=== PATIENT | male | born 1970 | race Two or more races ===

== ENCOUNTER 2019-12-22 06:20 | Inpatient (IN) | payer OTHER ==
[~2019-12-22] VITALS: Ht 172.7 cm; Wt 92.0 kg
[2019-12-22 08:14] LABS: Basophils # (auto) 0 10 ^3/uL (0-0.2); Basophils % (auto) 0.7 % (0.0-2.0); Eosinophils # (auto) 0.1 10 ^3/uL (0-0.8); Eosinophils % (auto) 2.2 % (0.0-7.0); Hematocrit 47.7 % (41.0-53.0); Hemoglobin 16.4 g/dL (13.5-17.5); Lymphocytes # (auto) 2.4 10 ^3/uL (0.4-5.4); Lymphocytes % (auto) 37.8 % (10.0-50.0); Mean Corpuscular Hemoglobin 33.2 pg (28.0-32.0); Mean Corpuscular Hgb Conc. 34.3 g/dL (32.0-36.0); Mean Corpuscular Volume 96.8 fL (80.0-100.0); Monocytes # (auto) 0.5 10 ^3/uL (0-1.3); Neutrophils # (auto) 3.3 10 ^3/uL (1.6-8.6); Neutrophils % (auto) 51.3 % (37.0-80.0); Nucleated Red Blood Cells % 0.1 %; Platelet Count (auto) 215 10^3/uL (140-450); Red Blood Cells 4.93 10^6/uL (4.5-5.90); Red Cell Distribution Width 13.8 % (11.8-14.3); White Blood Cell 6.3 10^3/uL (4.4-10.8)
[2019-12-22 08:28] LABS: INR 1.01 (0.9-1.15); Partial Thromboplastin Time 29.5 sec (23.64-32.05)
[2019-12-22 08:34] LABS: Calcium 8.5 mg/dL (8.5-10.1); Potassium 4.1 mmol/L (3.5-5.1)
[2019-12-22] MEDS ORDERED: ceFAZolin 1GM/50ML 100 ML IV ONE (08:34)
[2019-12-22 08:40] LABS: Albumin 3.5 g/dL (3.4-5.0); BUN/Creatinine Ratio 6.2; Bilirubin, Total 0.4 mg/dL (0.2-1.0)
[2019-12-22] MEDS ORDERED: ROPIVACAINE 0.5% (5MG/ML) 20ML AMPULE IJ ONE (10:24)
[2019-12-22] MEDS ORDERED: MIDAZOLAM HCL 1MG/1ML-2 ML VIAL ONE (10:27)
[2019-12-22] MEDS ORDERED: fentaNYL CITRATE 100 MCG/2 ML VL ONE (10:27)
[2019-12-22] MEDS ORDERED: ROCURONIUM 10MG/ML 10ML VIAL IV ONE (10:29)
[2019-12-22] MEDS ORDERED: GLYCOPYRROLATE 0.2 MG/ML 1ML VIAL IV ONE (10:30)
[2019-12-22] MEDS ORDERED: SUCCINYLCHOLINE CHLORIDE 20 MG/ML 10ML VIAL IV ONE (10:33)
[2019-12-22] MEDS ORDERED: PROPOFOL 10 MG/ML 20 ML IV ONE (10:36)
[2019-12-22] MEDS ORDERED: MORPHINE SULF INJ 2 MG/ML SYRINGE 1ML IV PRN (12:15)
[2019-12-22] MEDS ORDERED: ACETAMINOPHEN 325 MG TAB PO PRN (12:15)
[2019-12-22] MEDS ORDERED: ONDANSETRON HCL 4 MG/2 ML VIAL IV PRN ×2 (12:15→12:45)
[2019-12-22] MEDS ORDERED: NITROGLYCERIN 0.4 MG SL TAB SL PRN (12:15)
[2019-12-22] MEDS ORDERED: HYDROmorphone HCL 2 MG/ML VL IV PRN (12:45)
[2019-12-22] MEDS ORDERED: hydrALAZINE HCL 20 MG/ML VL IV PRN (12:45)
[2019-12-22] MEDS ORDERED: ePHEDrine SULFATE 50 MG/ML AMP IV PRN (12:45)
[2019-12-22] MEDS: KETOROLAC TROMETH 30 MG/ML 1ML VIAL ONE ×2 (13:01→13:04)
[2019-12-22] MEDS: HYDROmorphone HCL 2 MG/ML VL IV PRN ×6 (13:38→21:21)
[2019-12-22] MEDS: ceFAZolin 1GM/50ML 50 ML IV SCH ×2 (16:56→21:23)
[2019-12-22 17:00] VITALS: BP 102/61
[2019-12-22 17:53] VITALS: BP 124/97
[2019-12-22] MEDS ORDERED: DIVA250T51 PO (19:04)
[2019-12-22 21:54] VITALS: BP 104/70
[2019-12-23] MEDS: HYDROmorphone HCL 2 MG/ML VL IV PRN ×4 (00:31→12:10)
[2019-12-23 05:17] VITALS: BP 113/74
[2019-12-23] MEDS: ceFAZolin 1GM/50ML 50 ML IV SCH ×2 (05:26→12:10)
[2019-12-23 08:00] VITALS: BP 113/74
[2019-12-23 09:00] VITALS: BP 119/65
[2019-12-23 13:50] VITALS: BP 145/76
== END 2019-12-23 14:30 | DRG 502 ==
LOC: SUR 06:20 → EEVIPCON 06:20 → TELE-WESTW 15:19
PROVIDERS: ADMIT Orthopaedic Surgery; ATTEND Orthopaedic Surgery
PROC: 0RQJ4ZZ Repair Right Shoulder Joint, Percutaneous Endoscopic Approach (ICD-10-PCS; 2019-12-22)
PROC: 0RNJ4ZZ Release Right Shoulder Joint, Percutaneous Endoscopic Approach (ICD-10-PCS; 2019-12-22)
PROC: 0LM14ZZ Reattachment of Right Shoulder Tendon, Percutaneous Endoscopic Approach (ICD-10-PCS; principal; 2019-12-22 10:30)
DX: M75.101 Unspecified rotator cuff tear or rupture of right shoulder, not specified as traumatic (principal); M19.011 Primary osteoarthritis, right shoulder; M75.21 Bicipital tendinitis, right shoulder; S43.439A Superior glenoid labrum lesion of unspecified shoulder, initial encounter; K21.9 Gastro-esophageal reflux disease without esophagitis; I10 Essential (primary) hypertension; F32.9 Major depressive disorder, single episode, unspecified; Z79.899 Other long term (current) drug therapy
CPT/HCPCS: 36415; 80053; 85025; 85610; 85730; 87081; A4565; G0378; J0330; J0690; J1885; J2250; J2704

== ENCOUNTER → 2020-06-17 | Outpatient (CLI) | payer OTHER ==
[~2020-06-17] MED LIST: DIVA250T51 PO
== END | disposition home or self-care (01) ==
LOC: LAB 17:01
PROVIDERS: ATTEND Urology
DX: N39.0 Urinary tract infection, site not specified (principal)
CPT/HCPCS: 87086